=== PATIENT | male | born 1940 | race African-American/Black ===

== ENCOUNTER 2016-12-13 10:28 | Emergency (ER) | payer OTHER ==
[~2016-12-13] VITALS: Ht 182.9 cm; Wt 91.6 kg
[~2016-12-13 10:28] MED LIST: ADULT LOW DOSE81 MG PO; ALLOPURINOL 10100 M3 PO; ALLOPURINOL 30300 M1 PO; AMIODARONE HCL100 MG PO; AMLODIPINE BESY10 MG PO; ARANESP60 MCG/0.3 SUBQ; ASPIRIN81 M2 PO; BENICAR40 MG PO; CARDURA2 MG PO; CARDURA4 MG PO; CARVEDILOL25 MG PO; COLACE100 MG PO; COREG25 MG PO; COUMADIN 5 MG TA5 M1; COUMADIN 5 MG TA5 M1 PO; COZAAR100 MG PO; DARBEPOETIN ALFA SUBQ; EPOGEN2000 UNIT/ INJECTION; FAMOTIDINE 20 M20 MG PO; FERROUS GLUCON325 M4 PO; FOLIC ACID1 MG PO; HUMULIN N100 UNIT/1 SUBQ; IMDUR 30 MG TAB30 M1 PO; IRON325 PO; K-DUR 20 MEQ T20 MEQ PO; KLOR-CON 10 ER10 MEQ PO; KLOR-CON 1010 MEQ PO; LACTULOSE10 GM/152 PO; LANTUS SUBQ; LASIX 40 MG TAB40 M1 PO; LASIX 40 MG TAB40 MG PO; LISINOPRIL20 MG PO; LO-DOSE ASPIRIN81 M1 PO; LOSARTAN POTAS100 MG PO; METOLAZONE 2.52.5 M1 PO; METOLAZONE 2.52.5 MG PO; METOLAZONE10 MG PO; MIRALAX17 GM PO; NITROSTAT0.4 M1 SUBLING; NORVASC5 MG PO; NOVOLIN N100 UNIT/1 SUBQ; NOVOLIN R100 UNIT/1 SUBQ; OXYCODONE HCL 55 MG PO; PACERONE 200 M200 M1 PO; PRAVASTATIN SOD20 MG PO; PRINIVIL20 MG PO; PROCRIT40000 UNIT IJ; PROTONIX40 M1 PO; PROTONIX40 M2 PO; RANEXA500 MG PO; REGLAN 5 MG TAB5 M1 PO; SIMVASTATIN20 MG PO; TOPROL XL100 MG PO; TYLENOL EX-STR500 M2 PO; VITAMIN D1000 UNI1 PO; VITAMIN E1000 UNI3 PO; ZEMPLAR PO; ZEMPLAR1 MCG PO; ZEMPLAR2 MCG PO; ZOCOR20 MG PO
[2016-12-13] MEDS ORDERED: LIDODERM 5%1 PATC1 TRANSDERM (11:08)
[2016-12-13] MEDS ORDERED: LIORESAL 10 MG10 MG PO (11:08)
[2016-12-13] MEDS ORDERED: MOBIC15 MG PO (11:08)
== END 2016-12-13 11:44 | disposition home or self-care (01) ==
LOC: ER 10:28
DX: S16.1XXA Strain of muscle, fascia and tendon at neck level, initial encounter (principal); R51 Headache; I12.0 Hypertensive chronic kidney disease with stage 5 chronic kidney disease or end stage renal disease; E11.22 Type 2 diabetes mellitus with diabetic chronic kidney disease; N18.5 Chronic kidney disease, stage 5; I48.91 Unspecified atrial fibrillation; E78.5 Hyperlipidemia, unspecified; E89.0 Postprocedural hypothyroidism; Z98.890 Other specified postprocedural states; Z79.4 Long term (current) use of insulin; Z88.8 Allergy status to other drugs, medicaments and biological substances; Z88.5 Allergy status to narcotic agent; Z87.891 Personal history of nicotine dependence; V89.2XXA Person injured in unspecified motor-vehicle accident, traffic, initial encounter; Y93.89 Activity, other specified; Y92.89 Other specified places as the place of occurrence of the external cause; Y99.8 Other external cause status

== ENCOUNTER → 2018-11-27 | Outpatient (CLI) | payer OTHER ==
[~2018-11-27] MED LIST changes: +LIDODERM 5%1 PATC1 TRANSDERM; +LIORESAL 10 MG10 MG PO; +MOBIC15 MG PO
== END ==
LOC: ULTRA 13:59
DX: E11.51 Type 2 diabetes mellitus with diabetic peripheral angiopathy without gangrene (principal); R20.0 Anesthesia of skin

== ENCOUNTER → 2019-03-21 | Outpatient (CLI) | payer OTHER ==
[~2019-03-21] VITALS: Ht 182.9 cm; Wt 104.3 kg
[~2019-03-21] MED LIST changes: +FLOMAX0.4 MG PO; +LIPITOR40 MG PO
[2019-03-21 07:49] LABS: HEMATOCRIT 34.9 % (42.0-52.0); HEMOGLOBIN 11.3 gm/dL (14.0-18.0); MCH 31.6 pg (26.0-34.0); MCHC 32.5 g/dL (28.0-37.0); MCV 97.2 fL (80.0-100.0); RBC 3.59 mil/uL (4.50-6.00); RDW 16.6 % (10.5-14.5); WBC 6.8 thou/uL (4.0-11.0)
[2019-03-21 07:51] VITALS: BP 96/36
[2019-03-21 07:57] LABS: CALCIUM 8.9 mg/dL (8.5-10.1); CREATININE 7.7 mg/dL (0.7-1.3); POTASSIUM 3.9 mmol/L (3.5-5.1)
[2019-03-21 08:11] LABS: INR 1.1; PROTIME 11.1 Seconds (9.3-11.4)
[2019-03-21 13:30] VITALS: BP 115/55
--- NOTE | 2019-03-22 15:07 | EKG ---
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1940 Requested By: Jose Carlos Clements Order Number: [id number] MD: Flaco Corrales Measurements Intervals [place] Rate: 73 P: 0 VT: 196 QRS: -62 QRSD: 222 T: 113 QT: 521 QTc: 575 Interpretive Statements Ventricular-paced complexes No further analysis attempted due to paced rhythm Compared to ECG 03/30/2012 15:48:37 AV dual-paced complex(es) or rhythm no longer present Electronically Signed On 03-22-2019 15:07:24 CDT by Flaco Corrales [email or web address] <ELECTRONICALLY SIGNED> By: Flaco Corrales MD 03/22/19 1507 2 2 Flaco Corrales MD /EPI
== END | disposition home or self-care (01) ==
LOC: CATH 07:22
PROVIDERS: Radiology Diagnostic Radiology
DX: M79.671 Pain in right foot (principal); E11.51 Type 2 diabetes mellitus with diabetic peripheral angiopathy without gangrene; I77.1 Stricture of artery; E11.621 Type 2 diabetes mellitus with foot ulcer; L97.519 Non-pressure chronic ulcer of other part of right foot with unspecified severity; D64.9 Anemia, unspecified; M19.90 Unspecified osteoarthritis, unspecified site; M10.9 Gout, unspecified; I10 Essential (primary) hypertension; I11.0 Hypertensive heart disease with heart failure; I50.9 Heart failure, unspecified; E78.5 Hyperlipidemia, unspecified; E66.9 Obesity, unspecified; Z95.1 Presence of aortocoronary bypass graft; Z87.891 Personal history of nicotine dependence; Z88.8 Allergy status to other drugs, medicaments and biological substances; Z79.899 Other long term (current) drug therapy

== ENCOUNTER → 2020-04-16 | Outpatient (CLI) | payer OTHER ==
[~2020-04-16] VITALS: Ht 182.9 cm; Wt 102.0 kg
[~2020-04-16] MED LIST changes: +ASA81BEC PO; +BENTYL 10 MG CA10 MG PO; +NEURONTIN100 MG PO; +PACERONE100 MG PO; +PLAVIX 75 MG TA75 MG PO; +REGLAN 5 MG TAB5 MG PO; +SENSIPAR 30 MG30 M1 PO; +VENTOLIN HFA 1818 GM INH
[2020-04-16 07:48] VITALS: BP 104/33
[2020-04-16 07:49] LABS: HEMOGLOBIN 8.6 gm/dL (14.0-18.0); MCH 31.7 pg (26.0-34.0); MCHC 32.1 g/dL (28.0-37.0); MCV 98.9 fL (80.0-100.0); RBC 2.72 mil/uL (4.50-6.00); RDW 17.8 % (10.5-14.5); WBC 6.5 thou/uL (4.0-11.0)
[2020-04-16 08:14] LABS: CALCIUM 9.7 mg/dL (8.5-10.1); CREATININE 7.5 mg/dL (0.7-1.3); POTASSIUM 5.3 mmol/L (3.5-5.1)
[2020-04-16 12:02] VITALS: BP 148/76
[2020-04-16 12:31] VITALS: BP 125/50
[2020-04-16 12:45] VITALS: BP 125/63
[2020-04-16 13:20] VITALS: BP 126/55
[2020-04-16 14:05] VITALS: BP 120/55
== END | disposition home or self-care (01) ==
LOC: CATH 06:54
PROVIDERS: ATTEND Nuclear Medicine Nuclear Cardiology
DX: I70.238 Atherosclerosis of native arteries of right leg with ulceration of other part of lower leg (principal); I70.1 Atherosclerosis of renal artery; L97.919 Non-pressure chronic ulcer of unspecified part of right lower leg with unspecified severity; I11.0 Hypertensive heart disease with heart failure; I50.9 Heart failure, unspecified; E11.9 Type 2 diabetes mellitus without complications; J44.9 Chronic obstructive pulmonary disease, unspecified; I25.10 Atherosclerotic heart disease of native coronary artery without angina pectoris; M19.90 Unspecified osteoarthritis, unspecified site; M10.9 Gout, unspecified; D64.9 Anemia, unspecified; Z98.890 Other specified postprocedural states; Z79.899 Other long term (current) drug therapy; Z87.891 Personal history of nicotine dependence; Z95.0 Presence of cardiac pacemaker; Z95.1 Presence of aortocoronary bypass graft

== ENCOUNTER → 2020-07-16 | Outpatient (CLI) | payer OTHER | LOC: SJCVCIMAG 07-15 11:41 | PROVIDERS: ATTEND Nuclear Medicine Nuclear Cardiology | DX: I65.23 Occlusion and stenosis of bilateral carotid arteries (principal); I70.203 Unspecified atherosclerosis of native arteries of extremities, bilateral legs; I77.9 Disorder of arteries and arterioles, unspecified; Z79.82 Long term (current) use of aspirin; Z79.899 Other long term (current) drug therapy; Z95.828 Presence of other vascular implants and grafts; Z87.891 Personal history of nicotine dependence ==

== ENCOUNTER → 2020-07-28 | Outpatient (CLI) | payer OTHER | LOC: SJCVC 10:56 | PROVIDERS: ATTEND Nuclear Medicine Nuclear Cardiology | DX: I73.9 Peripheral vascular disease, unspecified (principal); I77.9 Disorder of arteries and arterioles, unspecified; I10 Essential (primary) hypertension; E78.5 Hyperlipidemia, unspecified; E11.9 Type 2 diabetes mellitus without complications; L97.509 Non-pressure chronic ulcer of other part of unspecified foot with unspecified severity; Z88.8 Allergy status to other drugs, medicaments and biological substances; Z79.82 Long term (current) use of aspirin; Z79.899 Other long term (current) drug therapy; Z87.891 Personal history of nicotine dependence; Z95.0 Presence of cardiac pacemaker; Z95.1 Presence of aortocoronary bypass graft ==

== ENCOUNTER → 2020-10-13 | Outpatient (CLI) | payer OTHER | LOC: SJCVCIMAG 10-12 11:32 | PROVIDERS: ATTEND Nuclear Medicine Nuclear Cardiology | DX: I70.201 Unspecified atherosclerosis of native arteries of extremities, right leg (principal); T82.856A Stenosis of peripheral vascular stent, initial encounter; L97.509 Non-pressure chronic ulcer of other part of unspecified foot with unspecified severity; I77.9 Disorder of arteries and arterioles, unspecified; E11.51 Type 2 diabetes mellitus with diabetic peripheral angiopathy without gangrene; E11.22 Type 2 diabetes mellitus with diabetic chronic kidney disease; I12.0 Hypertensive chronic kidney disease with stage 5 chronic kidney disease or end stage renal disease; N18.5 Chronic kidney disease, stage 5; E78.00 Pure hypercholesterolemia, unspecified; J44.9 Chronic obstructive pulmonary disease, unspecified; Z88.8 Allergy status to other drugs, medicaments and biological substances; Z79.82 Long term (current) use of aspirin; Z79.899 Other long term (current) drug therapy; Z87.891 Personal history of nicotine dependence; Y83.8 Other surgical procedures as the cause of abnormal reaction of the patient, or of later complication, without mention of misadventure at the time of the procedure; Y92.89 Other specified places as the place of occurrence of the external cause ==

== ENCOUNTER → 2020-10-22 | Outpatient (CLI) | payer OTHER ==
[~2020-10-22] VITALS: Ht 182.9 cm; Wt 98.4 kg
[2020-10-22 07:46] LABS: HEMATOCRIT 40.2 % (42.0-52.0); HEMOGLOBIN 12.7 gm/dL (14.0-18.0); MCH 27.4 pg (26.0-34.0); MCHC 31.7 g/dL (28.0-37.0); MCV 86.2 fL (80.0-100.0); RBC 4.66 mil/uL (4.50-6.00); RDW 21.4 % (10.5-14.5); WBC 7.7 thou/uL (4.0-11.0)
[2020-10-22 07:55] LABS: CALCIUM 10.6 mg/dL (8.5-10.1); CREATININE 8.8 mg/dL (0.7-1.3)
--- NOTE | 2020-10-22 08:44 | EKG ---
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1940 Requested By: Keo Castro Order Number: [id number] MD: Cal Johnson Measurements Intervals [place] Rate: 77 P: 0 CO: 40 QRS: -66 QRSD: 200 T: 117 QT: 461 QTc: 522 Interpretive Statements A-V dual-paced rhythm with some inhibition No further analysis attempted due to paced rhythm Compared to ECG 03/21/2019 08:03:15 No significant changes Electronically Signed On 10-22-2020 8:44:27 CDT by Cal Johnson [email or web address] <ELECTRONICALLY SIGNED> By: Cal Johnson MD, [facility] 10/22/2044 1 1 Cal Johnson MD, [facility] /EPI
== END | disposition home or self-care (01) ==
LOC: CATH 06:37
PROVIDERS: ATTEND Nuclear Medicine Nuclear Cardiology
DX: I70.321 Atherosclerosis of unspecified type of bypass graft(s) of the extremities with rest pain, right leg (principal); M79.604 Pain in right leg; I70.1 Atherosclerosis of renal artery; I11.0 Hypertensive heart disease with heart failure; I50.9 Heart failure, unspecified; E11.9 Type 2 diabetes mellitus without complications; M19.90 Unspecified osteoarthritis, unspecified site; D64.9 Anemia, unspecified; M10.9 Gout, unspecified; N19 Unspecified kidney failure; Z98.890 Other specified postprocedural states; Z79.899 Other long term (current) drug therapy; Z95.1 Presence of aortocoronary bypass graft

== ENCOUNTER → 2021-02-02 | Outpatient (CLI) | payer OTHER | LOC: SJCVCIMAG 01-19 08:59 | PROVIDERS: ATTEND Nuclear Medicine Nuclear Cardiology | DX: I70.203 Unspecified atherosclerosis of native arteries of extremities, bilateral legs (principal); I77.9 Disorder of arteries and arterioles, unspecified; E78.00 Pure hypercholesterolemia, unspecified; I25.10 Atherosclerotic heart disease of native coronary artery without angina pectoris; E11.51 Type 2 diabetes mellitus with diabetic peripheral angiopathy without gangrene; E11.22 Type 2 diabetes mellitus with diabetic chronic kidney disease; I13.0 Hypertensive heart and chronic kidney disease with heart failure and stage 1 through stage 4 chronic kidney disease, or unspecified chronic kidney disease; I50.9 Heart failure, unspecified; N18.9 Chronic kidney disease, unspecified; Z95.5 Presence of coronary angioplasty implant and graft; Z88.8 Allergy status to other drugs, medicaments and biological substances; Z79.82 Long term (current) use of aspirin; Z79.899 Other long term (current) drug therapy; Z87.891 Personal history of nicotine dependence ==

== ENCOUNTER → 2021-08-03 | Outpatient (CLI) | payer OTHER | LOC: SJCVCIMAG 10:15 | PROVIDERS: ATTEND Nuclear Medicine Nuclear Cardiology | DX: I70.203 Unspecified atherosclerosis of native arteries of extremities, bilateral legs (principal); I65.23 Occlusion and stenosis of bilateral carotid arteries; I77.9 Disorder of arteries and arterioles, unspecified; I12.0 Hypertensive chronic kidney disease with stage 5 chronic kidney disease or end stage renal disease; N18.5 Chronic kidney disease, stage 5; E11.22 Type 2 diabetes mellitus with diabetic chronic kidney disease; G47.33 Obstructive sleep apnea (adult) (pediatric); J44.9 Chronic obstructive pulmonary disease, unspecified; E78.00 Pure hypercholesterolemia, unspecified; E11.9 Type 2 diabetes mellitus without complications; Z87.891 Personal history of nicotine dependence; Z88.8 Allergy status to other drugs, medicaments and biological substances; Z79.82 Long term (current) use of aspirin; Z79.899 Other long term (current) drug therapy ==